=== PATIENT | female | born 1995 | race Caucasian/White ===

== ENCOUNTER 2022-03-26 09:10 | Emergency (ER) | payer OTHER ==
[2022-03-26 10:47] LABS: HEMOGLOBIN 9.5 gm/dl (12.3-15.3); RED BLOOD COUNT 4.69 M/UL (4.00-5.10); WHITE BLOOD COUNT 5.4 K/UL (4.5-11.0)
[2022-03-26 11:20] LABS: BUN/CREATININE RATIO 8 (0-10)
[2022-03-26] MEDS ORDERED: ELIQUIS5 MG PO (12:40)
== END 2022-03-26 14:24 | disposition home or self-care (01) ==
LOC: ER1 09:10
PROVIDERS: Physician Assistant
DX: I82.441 Acute embolism and thrombosis of right tibial vein (principal); E87.6 Hypokalemia; G40.909 Epilepsy, unspecified, not intractable, without status epilepticus; F17.200 Nicotine dependence, unspecified, uncomplicated
CPT/HCPCS: 71045; 73630; 80053; 82550; 82553; 84484; 85025; 85379; 93005; 93971; 99284; Q9967